=== PATIENT | female | born 1960 | race Caucasian/White ===

== ENCOUNTER → 2017-10-10 17:54 | Outpatient (CLI) | payer OTHER, SELFPAY | PROVIDERS: PCP Family Medicine | DX: R30.0 Dysuria (principal) | CPT/HCPCS: 87077; 87086; 87186 ==

== ENCOUNTER → 2017-12-28 08:57 | Outpatient (CLI) | payer OTHER, SELFPAY ==
--- NOTE | 2017-12-28 | DI.MG.S_ITS ---
BILATERAL DIGITAL SCREENING MAMMOGRAM 3D/2D WITH CAD: 12/28/2017 CLINICAL: Routine screening. Comparison is made to exam dated: 12/16/2015 mammogram - [facility]. There are scattered fibroglandular elements in both breasts. Current study was also evaluated with a Computer Aided Detection (CAD) system. There is a focal asymmetry in the left breast central to the nipple in the retroareolar region. No other significant masses, calcifications, or other findings are seen in either breast. IMPRESSION: INCOMPLETE: NEEDS ADDITIONAL IMAGING EVALUATION The focal asymmetry in the left breast is indeterminate. Additional views with possible ultrasound are recommended. This exam was interpreted at Station ID: [id number]. NOTE: For mammograms, a report in lay terms will be sent to the patient. Approximately 15% of breast malignancies will not be visualized mammographically. In the management of a palpable breast mass, a negative mammogram must not discourage biopsy of a clinically suspicious lesion. Electronically Signed By: Larry Mcgraw M.D. ecl/:01/01/2018 00:17:16 letter sent: Additional Imaging Needed ACR BI-RADS Category 0: Incomplete 3340F
== END ==
PROVIDERS: PCP Family Medicine
DX: Z12.31 Encounter for screening mammogram for malignant neoplasm of breast (principal)
CPT/HCPCS: 77063; 77067

== ENCOUNTER → 2018-01-27 09:50 | Outpatient (CLI) | payer OTHER, SELFPAY ==
--- NOTE | 2018-01-27 | DI.MG.S_ITS ---
UNILATERAL LEFT DIGITAL DIAGNOSTIC MAMMOGRAM 3D/2D WITH ADDITIONAL VIEWS: 01/27/2018 CLINICAL: Additional evaluation requested from prior study. Comparison is made to exams dated: 12/28/2017 mammogram and 12/16/2015 mammogram - [facility]. There are scattered fibroglandular elements in left breast. The focal asymmetry in the left breast central to the nipple in the retroareolar region is not seen in additional views. No other significant masses or calcifications are seen in the breast. IMPRESSION: There is no mammographic evidence of malignancy. A 1 year screening mammogram is recommended. This exam was interpreted at Station ID: [id number]. NOTE: For mammograms, a report in lay terms will be sent to the patient. Approximately 15% of breast malignancies will not be visualized mammographically. In the management of a palpable breast mass, a negative mammogram must not discourage biopsy of a clinically suspicious lesion. Electronically Signed By: Janel Mistry M.D. lk/:01/27/2018 10:24:10 letter sent: Normal Exam ACR BI-RADS Category 2: Benign Finding(s) 3342F
== END ==
PROVIDERS: PCP Family Medicine
DX: R92.8 Other abnormal and inconclusive findings on diagnostic imaging of breast (principal)
CPT/HCPCS: 77065; G0279

== ENCOUNTER → 2019-01-02 08:01 | Outpatient (CLI) | payer OTHER, SELFPAY ==
--- NOTE | 2019-01-02 | DI.MG.S_ITS ---
BILATERAL DIGITAL SCREENING MAMMOGRAM 3D/2D WITH CAD: 01/02/2019 CLINICAL: Routine screening. Comparison is made to exams dated: 01/27/2018 mammogram, 12/28/2017 mammogram, and 12/16/2015 mammogram - [facility]. There are scattered fibroglandular elements in both breasts. Current study was also evaluated with a Computer Aided Detection (CAD) system. There is an asymmetry in the right breast anterior depth central to the nipple seen on the craniocaudal view only. No other significant masses, calcifications, or other findings are seen in either breast. IMPRESSION: INCOMPLETE: NEEDS ADDITIONAL IMAGING EVALUATION The asymmetry in the right breast is indeterminate. Additional views with possible ultrasound are recommended. This exam was interpreted at Station ID: [id number]. NOTE: For mammograms, a report in lay terms will be sent to the patient. Approximately 15% of breast malignancies will not be visualized mammographically. In the management of a palpable breast mass, a negative mammogram must not discourage biopsy of a clinically suspicious lesion. Electronically Signed By: Janel hopkins/guevara:01/02/2019 08:29:15 letter sent: Additional Imaging Needed ACR BI-RADS Category 0: Incomplete 3340F
== END ==
PROVIDERS: PCP Family Medicine; Visit Provider Family Medicine
DX: Z12.31 Encounter for screening mammogram for malignant neoplasm of breast (principal)
CPT/HCPCS: 77063; 77067

== ENCOUNTER → 2019-01-22 14:43 | Outpatient (CLI) | payer OTHER, SELFPAY ==
--- NOTE | 2019-01-22 14:44 | DI.US.S_ITS ---
LIMITED ULTRASOUND OF RIGHT BREAST: 01/22/2019 CLINICAL: Additional evaluation requested from prior study. Comparison is made to exams dated: 01/22/2019 mammogram, 01/02/2019 mammogram, 01/27/2018 mammogram, 12/28/2017 mammogram, and 12/16/2015 mammogram - [facility]. Color flow and real-time ultrasound of the right breast lower outer quadrant and retroareolar regions were performed. Chu scale images of the real-time examination were reviewed. There is mild diffuse ductal dilatation in the right rest retroareolar region and right breast lower outer quadrant, best seen near the 8:00 position approximately 2 cm from the nipple where there is echogenic debris within the ducts and mildly increased echogenicity of the adjacent soft tissues. This may correlate with mammography findings. No suspicious vascularity is identified on ultrasound. IMPRESSION: PROBABLY BENIGN Mild right breast retroareolar and lower outer quadrant diffuse ductal ectasia with internal debris, which is probably benign. A followup diagnostic mammogram with possible ultrasound is recommended to demonstrate stability. The patient is advised to monitor her breasts and to return sooner for re-evaluation should she feel anything grow or change. This exam was interpreted at Station ID: [id number]. Electronically Signed By: Larry Mcgraw M.D. ecl/:01/23/2019 12:11:46 letter sent: Followup Recommended Ultrasound BI-RADS: 3 Probably benign
--- NOTE | 2019-01-22 14:44 | DI.MG.S_ITS ---
UNILATERAL RIGHT DIGITAL DIAGNOSTIC MAMMOGRAM 3D/2D WITH ADDITIONAL VIEWS: 01/22/2019 CLINICAL: Additional evaluation requested from prior study. Comparison is made to exams dated: 01/02/2019 mammogram, 12/28/2017 mammogram, and 12/16/2015 mammogram - [facility]. There are scattered fibroglandular elements in right breast. Previously identified asymmetry in the right breast anterior depth central to the nipple seen on the craniocaudal view only on comparison screening mammograms of 01/02/19 persists with additional views. This measures approximately 0.5 cm in greatest diameter, and is less prominent on spot compression views. IMPRESSION: INCOMPLETE: NEEDS ADDITIONAL IMAGING EVALUATION Previously identified asymmetry in the right breast anterior depth central to the nipple seen on the craniocaudal view only on comparison screening mammograms of 01/02/19 persists with additional views. A targeted ultrasound is recommended for further evaluation, and will be performed immediately following this exam. This exam was interpreted at Station ID: [id number]. NOTE: For mammograms, a report in lay terms will be sent to the patient. Approximately 15% of breast malignancies will not be visualized mammographically. In the management of a palpable breast mass, a negative mammogram must not discourage biopsy of a clinically suspicious lesion. Electronically Signed By: Larry Mcgraw M.D. ecl/:01/22/2019 15:40:12 ACR BI-RADS Category 0: Incomplete 3340F
== END ==
PROVIDERS: PCP Family Medicine; Visit Provider Family Medicine
DX: R92.8 Other abnormal and inconclusive findings on diagnostic imaging of breast (principal); N60.41 Mammary duct ectasia of right breast
CPT/HCPCS: 76642; 77065; G0279

== ENCOUNTER → 2019-02-05 06:53 | Outpatient (CLI) | payer OTHER, SELFPAY ==
[2019-02-05 08:01] LABS: Add Manual Diff / Slide Review NO; Basophils Absolute Auto 100 /uL (0-100); Basophils Percent Auto 1.3 % (0-2); Eosinophils Absolute Auto 100 /uL (0-450); Eosinophils Percent Auto 2.4 % (2-4); Hematocrit 38.9 % (36-46); Hemoglobin 13.5 g/dL (12.0-16.0); Lymphocytes Absolute Auto 2200 /uL (1100-4500); Lymphocytes Percent Auto 36.7 % (25-40); Mean Corpuscular HGB Conc 34.7 % (30-36); Mean Corpuscular Hemoglobin 32.2 PG (26-34); Mean Corpuscular Volume 92.7 fL (80-100); Monocytes Absolute Auto 500 /uL (0-900); Monocytes Percent Auto 7.7 % (3-14); Neutrophils Absolute Auto 3100 /uL (1500-7000); Neutrophils Percent Auto 51.9 % (50-75); Platelet Count 226 X10^3/uL (150-400); Red Cell Distribution Width 13.3 % (11.6-14.8); White Blood Cell Count 5.9 X10^3/uL (4.5-11.0)
[2019-02-05 08:14] LABS: Alanine Aminotransferase 22 IU/L (9-52); Albumin 4.7 g/dL (3.5-5.0); Albumin Globulin Ratio 1.7 (1.0-2.8); Alkaline Phosphatase 72 U/L (38-126); Aspartate Aminotransferase 31 IU/L (14-36); BUN Creatinine Ratio 17.1 (6-22); Bilirubin Total 0.7 mg/dL (0.2-1.3); Blood Urea Nitrogen 12 mg/dL (7-17); Calcium 10.1 mg/dL (8.4-10.2); Carbon Dioxide 25 mmol/L (22-32); Chloride 105 mmol/L (98-107); Cholesterol 213 mg/dL (140-199); Estimated Glomerular Filt Rate > 60.0 mL/min (>60); Globulin 2.7 g/dL (1.7-4.1); Glucose 123 mg/dL (70-100); HDL Cholesterol 51 mg/dL (40-60); HEMOLYSIS < 15 (0-50); LDL Cholesterol Calculated 85 mg/dL (<100); Potassium 3.9 mmol/L (3.4-5.1); Sodium 140 mmol/L (137-145); Total Protein 7.4 g/dL (6.3-8.2); Triglycerides 387 mg/dL (35-150)
[2019-02-05 08:50] LABS: Free T3, Triiodothyronine Free 3.34 pg/mL (2.77-5.27); Free T4, Direct Thyroxine 0.83 ng/dL (0.78-2.19)
[2019-02-05 09:03] LABS: Thyroid Stimulating Hormone 5.31 uIU/mL (0.47-4.68)
== END ==
PROVIDERS: PCP Family Medicine; Visit Provider Family Medicine
DX: Z13.220 Encounter for screening for lipoid disorders (principal); E03.9 Hypothyroidism, unspecified; Z79.899 Other long term (current) drug therapy
CPT/HCPCS: 36415; 80053; 80061; 84439; 84443; 84481; 85025

== ENCOUNTER → 2019-03-25 15:54 | Outpatient (CLI) | payer OTHER, SELFPAY ==
--- NOTE | 2019-03-25 | DI.MRI.S_ITS ---
PROCEDURE: MR BRAIN (IAC) WWO CON INDICATIONS: Other abnormal auditory perceptions, left ear TECHNIQUE: Noncontrast sagittal T1 spin echo, axial FLAIR, axial gradient echo, axial diffusion and ADC through the brain. Axial thin-slice 3D CISS, coronal TruFISP, axial T1 spin echo with fat saturation through the internal auditory canals. After the administration of contrast, thin slice axial and coronal T1 spin echo with fat saturation through the internal auditory canals, and axial T1 spin echo with fat saturation through the brain. COMPARISON: None. FINDINGS: Image quality: Excellent. Cranial nerves: No cerebellopontine angle masses. Visualized cranial nerves demonstrate no areas of abnormal signal, enhancement or mass lesion. CSF spaces: Ventricles are normal in size and shape. No extra-axial fluid collections. Basal cisterns are patent. Brain: No intracranial bleeds or mass effects. Chu-white matter interface is intact. No abnormal intracranial enhancement. Diffusion weighted images demonstrate no acute ischemic insults. Brainstem appears normal. Normal intravascular flow voids are present. Skull and face: Calvarial marrow signal is normal. Orbits appear normal. Sinuses: Sinuses and mastoids are clear. IMPRESSION: 1. No acute intracranial process. 2. No visualized cause of auditory symptoms. Dictated by: Honey Renee M.D. on 03/26/2019 at 13:44 Approved by: Honey Renee M.D. on 03/26/2019 at 13:47
== END ==
PROVIDERS: PCP Family Medicine; Visit Provider Otolaryngology Facial Plastic Surgery
DX: H93.292 Other abnormal auditory perceptions, left ear (principal)
CPT/HCPCS: 70553; A9579

== ENCOUNTER 2019-06-14 13:45 | Emergency (ER) | payer OTHER, SELFPAY ==
[2019-06-14 14:03] VITALS: BP 142/72; PULSE 74; RESP 18; TEMP 36.8; O2SAT 100
--- NOTE | 2019-06-14 14:10 | DI.RAD.S_ITS ---
PROCEDURE: XR ANKLE RT MIN 3V INDICATIONS: fall w/ ankle pain. TECHNIQUE: 3 views of the ankle were acquired. COMPARISON: None. FINDINGS: Bones: No displaced fractures or dislocations. Ankle mortise is normally aligned. No suspicious bony lesions. Soft tissues: There is a suspected tibiotalar joint effusion. Achilles tendon appears intact. IMPRESSION: 1. No displaced fracture or dislocation. 2. Suspected tibiotalar joint effusion. Dictated by: Jeff Boyd M.D. on 06/14/2019 at 13:48 Approved by: Jeff Boyd M.D. on 06/14/2019 at 13:49
[2019-06-14 15:30] VITALS: PULSE 78
[2019-06-14 15:31] VITALS: BP 139/67; PULSE 64; RESP 16; O2SAT 100
--- NOTE | 2019-06-14 15:39 | ED.LOWEXIN ---
HPI - Extremity Injury (Lower) <EPIFANIO Leyva - Last Filed: 06/14/19 21:16> General Chief Complaint: Extremity Injury, Lower Stated Complaint: fell down stairs, twisted right ankle Time Seen by Provider: 06/14/19 15:21 Source: patient Mode of arrival: Wheelchair Limitations: no limitations History of Present Illness HPI Narrative: This is a 59-year-old female, nonsmoker, who presents to ED with significant other with chief complain of left lateral ankle pain. Patient reports she was walking down carrying bed sheet and mattress cover on stairs and she accidentally inverted right ankle 2nd to the last steps and hit her right anterior quintana to the wall. Patient reports continuous throbbing discomfort in lateral malleolar region and reports bruise on right lateral anterior leg from this injury. Patient denies previous injury to same ankle. Patient denies injuring her head, losing consciousness or pain to her right hip, knee, foot. Patient reports intact sensation and mobility to right toes. Patient's spouse applied Ariel bandage on affected ankle prior coming into ED and she reports this has been helping with discomfort. Related Data Previous Rx's Medication Instructions Recorded diclofenac sodium 1 % topical gel 2 gram TOPICAL QIDP PRN #100 gram 11/11/17 lorazepam 1 mg tablet 1 mg PO TIDP PRN #90 tab 01/14/18 naltrexone 50 mg tablet 50 mg PO Q DAY #30 tab 03/12/18 thyroid (pork) 81.25 mg tablet 81.25 mg PO QDAY #30 tab 03/13/18 Testosterone VBase 1% Cream 2 mg TOPICAL .QD #42.5 gram 07/24/18 Progesterone 100mg/mL cream 100 mg TOPICAL .QHS #30 gram 03/05/19 Allergies Allergy/AdvReac Type Severity Reaction Status Date / Time No Known Drug Allergies Allergy Verified 06/14/19 14:09 Review of Systems <EPIFANIO Leyva - Last Filed: 06/14/19 21:16> Review of Systems Narrative: General: Denies fever, chills, fatigue, malaise, sweats. HEENT: Denies sinus pain, ear pain, sore throat, difficulty swallowing, dizziness. Respiratory: Denies dyspnea, cough, wheezing, hemoptysis, sputum. Cardiovascular: Denies chest pain, palpitations, orthopnea, edema. Gastrointestinal: Denies nausea, vomiting, abdominal pain, diarrhea, constipation, melena. : Denies dysuria, frequency, incontinence, hematuria, urinary retention. Musculoskeletal: See HPI Skin: Denies rash, skin lesions, or other. Neurologic: Denies weakness, headache, numbness, change in speech, confusion, seizures, incoordination. Psychiatric: No concerning psychosocial issues. 12-point review of systems is negative except for those stated above. Patient History <EPIFANIO Leyva - Last Filed: 06/14/19 21:16> Medical History Ovarian cyst (Chronic) Surgical History Anesthesia (Resolved) History of hysterosalpingogram (Resolved ~1982) History of knee surgery (Resolved ~1994) History of tonsillectomy (~1967) Status post exploratory laparotomy (12/11/13) Social History Smoking Status: Never smoker Smoking Status: Never smoker alcohol intake frequency: 0-2 drinks per day Substance Use Type: does not use Exam <EPIFANIO Leyva - Last Filed: 06/14/19 21:16> Narrative Exam Narrative: General appearance: well developed, well nourished, in no acute distress. Head: normocephalic, atraumatic, no scalp lesions, non-tender. ENT: Hearing grossly intact. Nose without bleeding, purulent discharge or deviation. Mucous membrane moist, no mucosal lesion. Throat without erythema, tonsillar hypertrophy or exudate. Uvula in midline, airway patent. Neck/Thyroid: neck supple, full range of motion, no visible masses or meningeal signs. No JVD, non-tender without lymphadenopathy. Skin: no suspicious rashes, lesions over visible areas. Warm and dry and appropriate color for ethnicity. Heart: no clubbing, no cyanosis, no edema. Lungs: Breathing even and unlabored. No stridor. No accessory muscles used. Able to speak in full sentences. Chest: normal shape and expansion. Abdomen: non-obese, non-distended. Neurologic: alert and oriented. Cognitive exam, YOUTH DIRECTOR and PNS grossly intact on informal exam. Psych: good eye contact, normal affect. Initial Vital Signs Initial Vital Signs: Vital Signs Temperature 98.2 F 06/14/19 14:03 Pulse Rate 74 06/14/19 14:03 Respiratory Rate 18 06/14/19 14:03 Blood Pressure 142/72 H 06/14/19 14:03 Pulse Oximetry 100 06/14/19 14:03 Extrem Right lower extremity: hip/thigh Details: normal to inspection and normal ROM; no tenderness, knee Details: normal to inspection and normal ROM; no tenderness, lower leg Details: no edema and ecchymosis (anterior lateral leg); no tenderness, no crepitus, no deformity and no unusual warmth, ankle Details: abnormal to inspection, tenderness Location: of the lateral malleolus, swelling Details: laterally, abnormal ROM Details: pain with active ROM (rotating r ankle) and pain with passive ROM and ecchymosis (lateral right malleolar); no unusual warmth, no abrasions, no lacerations and no crepitus and foot Details: normal to inspection, toes with normal ROM, no edema, vascular exam Details: dorsalis pedis pulse present and normal capillary refill, tendon exam Details: active flexion normal Location: of all toes and active extension normal Location: of all toes and motor-sensory exam Details: light-touch normal; no tenderness, no unusual warmth, no abrasion, no laceration, no ecchymosis and no crepitus <Toribio Gao DO - Last Filed: 06/15/19 06:59> Initial Vital Signs Initial Vital Signs: Vital Signs Temperature 98.2 F 06/14/19 14:03 Pulse Rate 74 06/14/19 14:03 Respiratory Rate 18 06/14/19 14:03 Blood Pressure 142/72 H 06/14/19 14:03 Pulse Oximetry 100 06/14/19 14:03 Scores <EPIFANIO Leyva - Last Filed: 06/14/19 21:16> GCS Cj coma scale eye opening: Spontaneous [place] coma scale verbal response: Orientated Cj coma scale motor response: Obey commands Cj coma scale total score: 15 Course <EPIFANIO Leyva Last Filed: 06/14/19 21:16> Orders Ordered: ED Orders 06/14/19 14:10 XR ankle RT min 3V Stat Vital Signs Vital signs: Vital Signs - 8 hr 06/14/19 14:03 06/14/19 15:30 06/14/19 15:31 Temperature 98.2 F Pulse Rate 74 64 Pulse Rate [Right Dorsalis Pedis] 78 Respiratory Rate 18 16 Blood Pressure 142/72 H Blood Pressure [Left Arm] 139/67 Pulse Oximetry 100 100 <Toribio Gao DO - Last Filed: 06/15/19 06:59> Orders Ordered: ED Orders 06/14/19 14:10 XR ankle RT min 3V Stat Vital Signs Vital signs: Vital Signs - 8 hr 06/14/19 14:03 06/14/19 15:30 06/14/19 15:31 Temperature 98.2 F Pulse Rate 74 64 Pulse Rate [Right Dorsalis Pedis] 78 Respiratory Rate 18 16 Blood Pressure 142/72 H Blood Pressure [Left Arm] 139/67 Pulse Oximetry 100 100 MDM - Extremity Injury (Lower) <EPIFANIO Leyva - Last Filed: 06/14/19 21:16> Differential Diagnosis Differential diagnosis: Likely ankle sprain and strain and ankle fracture Medical Records Attestation: I reviewed the patient's medical records. Imaging Data XR-Ankle RT: Radiologist's Impression: [place] [address] XRay Report Signed Patient: Yuki Rodrigez [facility]#: [id number] : 1960Acct:[id number] Age/Sex: 59 / FDate of Service: 06/14/19 Loc: ED Accession Number: [id number] Procedure: XR ankle RT min 3V Ordering Provider: Toribio Gao D.O. PROCEDURE: XR ANKLE RT MIN 3V INDICATIONS: fall w/ ankle pain. TECHNIQUE: 3 views of the ankle were acquired. COMPARISON: None. FINDINGS: Bones: No displaced fractures or dislocations. Ankle mortise is normally aligned. No suspicious bony lesions. Soft tissues: There is a suspected tibiotalar joint effusion. Achilles tendon appears intact. IMPRESSION: 1. No displaced fracture or dislocation. 2. Suspected tibiotalar joint effusion. Dictated by: Jeff Boyd M.D. on 06/14/2019 at 13:48 Approved by: Jeff Boyd M.D. on 06/14/2019 at 13:49 MDM Narrative Medical decision making narrative: This is 59-year-old female who presents to ED with right lateral ankle discomfort with right anterior lateral quintana ecchymosis after she accidentally inverted coming down on stairs. X-ray test on right ankle does not show acute findings such as fractures or dislocations. Patient is able to move her toes and with intact sensation and intact distal pulse. Patient denies discomfort in right lateral quintana but with some ecchymosis. Patient declines Ariel wrap but states will use her hand and patient declined medications while in ED for pain management stating she will take these Tylenol and or Motrin at home. When patient offered crutches, patient declined this and states will borrow her friends scooter for few days. Patient advised to use RICE therapy and to do stretching exercises on affected ankle when acute pain subsides. Patient verbalized understanding and in agreement the plan. Discharge Plan Departure Patient Disposition: Home Clinical Impression: Ankle sprain Qualifiers: Encounter type: initial encounter Involved ligament of ankle: unspecified ligament Laterality: right Qualified Code(s): S93.401A - Sprain of unspecified ligament of right ankle, initial encounter Discharge Date/Time: 06/14/19 16:10 Instructions: DI for Ankle Sprain Activity Restrictions/Additional Instructions: You have been diagnosed with [right lateral ankle sprain. X-ray test does not show acute findings such as fracture or dislocation but indicates tibiotarsal joint effusion]. What to do: *Take your medications as directed. Please take [id number] ibuprofen and Tylenol as needed for discomfort. Ibuprofen 400 mg to 600 mg 3 to 4 times a day as needed for discomfort with food. Tylenol 650-1000 mg up to 4 times a day as needed. Use RICE therapy. Rest, Ice pack for 24-48 hrs, use ariel wrap on affected foot and ankle and elevation to prevent swellings. When acute pain decreases, please start exercising her ankle. Please use a scooter as you planned. *Follow up with your primary care provider in 2-3 days, call for an appointment. If pain persists greater than 7-10 days, Please have repeated xray test on affected ankle done. Let them know you were seen in the ED and that we asked you to be seen in follow up. *Return to ED if you have any new, worsening, or concerning symptoms, such as [chest pain, breathing difficulty, unable to tolerate fluids, tingling/weakness/numbness to affected foot and ankle, fever or any acute concerns]. Prescriptions: No Action diclofenac sodium [Voltaren] 1 % gel 2 gram Topical QIDP PRN (Reason: pain) Qty: 100 RF: 5 lorazepam 1 mg tablet 1 mg PO TIDP PRN (Reason: anxiety) Qty: 90 RF: 2 naltrexone 50 mg tablet 50 mg PO Q DAY Qty: 30 RF: 2 thyroid (pork) [Nature-Throid] 81.25 mg tablet 81.25 mg PO QDAY Qty: 30 RF: 6 Testosterone VBase 1% Cream 2 mg topical .QD Qty: 42.5 RF: 2 Progesterone 100mg/mL cream 100 mg Topical .QHS Qty: 30 RF: 3 Referrals: Yash Yeboah MD [Primary Care Provider] - <Toribio Gao DO - Last Filed: 06/15/19 06:59> Sign Out Provider Sign Out Attestation: Dr Gao Co-Sign Statement: I was available for consultation during this patient's emergency department visit. This chart is signed by myself for administrative purposes only. I did not have direct contact with this patient during this visit. They were seen independently by the APC.
--- NOTE | 2019-06-14 15:59 | PC.NURSE ---
CSM fully intact.
== END 2019-06-14 16:10 | disposition home or self-care (01) ==
PROVIDERS: Emergency Provider Nurse Practitioner Family; PCP Family Medicine
DX: S93.401A Sprain of unspecified ligament of right ankle, initial encounter (principal)
CPT/HCPCS: 73610; 99283

== ENCOUNTER → 2020-01-04 08:53 | Outpatient (CLI) | payer OTHER, SELFPAY | PROVIDERS: PCP Nurse Practitioner Family; Referring Provider Student in an Organized Health Care Education/Training Program; Visit Provider Student in an Organized Health Care Education/Training Program | DX: Z53.9 Procedure and treatment not carried out, unspecified reason (principal) ==

== ENCOUNTER 2020-05-02 16:21 | Emergency (ER) | payer OTHER, SELFPAY ==
[2020-05-02 16:25] VITALS: BP 127/85; PULSE 81; RESP 17; TEMP 36.5; O2SAT 96
--- NOTE | 2020-05-02 16:42 | DI.RAD.S_ITS ---
PROCEDURE: XR SHOULDER LT MIN 2V INDICATIONS: pain TECHNIQUE: 3 views of the shoulder were acquired. COMPARISON: None. FINDINGS: Bones: No fractures or dislocations. No suspicious bony lesions. Visualized ribs appear intact. Soft tissues: No suspicious soft tissue calcifications. IMPRESSION: No shoulder fracture or dislocation. Mild acromioclavicular joint and glenohumeral joint osteoarthritis. Dictated by: Sascha Boateng M.D. on 05/02/2020 at 17:00 Approved by: Sascha Boateng M.D. on 05/02/2020 at 17:00
[2020-05-02 17:34] VITALS: PULSE 75; O2SAT 96
[2020-05-02] MEDS: KETOROLAC 60 MG/2 ML VIAL 30 MG IM (17:52)
[2020-05-02 18:00] VITALS: PULSE 77; O2SAT 97
[2020-05-02 18:01] VITALS: BP 135/69; PULSE 76; O2SAT 97
--- NOTE | 2020-05-02 18:20 | ED.UPPEXIN ---
HPI - Extremity Injury (Upper) General Chief Complaint: Extremity Injury, Upper Stated Complaint: Pain Through Back, Low Stat, Sent from [facility] Time Seen by Provider: 05/02/20 18:06 Source: patient Mode of arrival: Ambulatory Limitations: no limitations History of Present Illness HPI narrative: The patient complains of left neck and upper back pain, onset today. 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 She is aware that she also has osteoarthritis of the thoracic spine. She awoke with the discomfort. There was no associated injury. She has not been ill, there is no cough. She has increased discomfort with motion of the left shoulder. She has no numbness or weakness in left arm, she is right arm dominant. She was seen by her chiropractor earlier today, her current discomfort was present prior to the chiropractor evaluation. She takes Valium as needed, her usual dose is 10 mg, she took 5 mg this morning. He has no incontinence, she has no other symptoms. Related Data Home Medications Medication Instructions Recorded Confirmed LEVOTHYROXINE/LIOTHYRONINE IR 1 cap PO DAILY 04/07/20 Naltrexone 4.2 mg PO BEDTIME 04/07/20 Progesterone 200mg 200 mg PO BEDTIME gram 04/07/20 04/07/20 Testosterone Pellets See Rx Instructions PO [id number] 04/07/20 04/07/20 gram diazepam 05/02/20 Previous Rx's Medication Instructions Recorded ibuprofen 600 mg PO Q6H PRN #40 tab 05/02/20 methocarbamol [Robaxin-750] 750 mg PO Q6H PRN #40 tab 05/02/20 tramadol 50 mg PO Q6H PRN #10 tab 05/02/20 Allergies Allergy/AdvReac Type Severity Reaction Status Date / Time eszopiclone [From Lunesta] AdvReac Severe hallucinati Verified 04/07/20 11:27 ons trazodone AdvReac Intermediate daytime Verified 04/07/20 11:27 sleepiness/foggy Review of Systems Review of Systems ROS Unobtainable: All systems reviewed & are unremarkable except as noted in HPI and below Constitutional Constitutional: Denies fever(s) Comments: No recent illness ENT Comments: No complaints of headache Cardiovascular Cardiovascular: Denies chest pain, Denies rapid heart rate and Denies dyspnea Respiratory Respiratory: Denies dyspnea Musculoskeletal Comments: Left neck and left upper back pain, see HPI. Patient History Medical History Acquired hypothyroidism (08/08/15) Anxiety (01/07/15) Mixed hyperlipidemia On postmenopausal hormone replacement therapy (08/20/16) Ovarian cyst Primary insomnia (08/08/15) Surgical History Anesthesia History of hysterosalpingogram (~1982) History of knee surgery (~1994) History of tonsillectomy (~1967) Status post exploratory laparotomy (12/11/13) Social History Smoking Status: Never smoker additional social history: Cheondoism Smoking Status: Never smoker alcohol intake frequency: 0-2 drinks per day Alcohol type: hard liquor Substance Use Type: does not use Exam Initial Vital Signs Initial Vital Signs: Vital Signs Temperature 97.7 F 05/02/20 16:25 Pulse Rate 81 05/02/20 16:25 Respiratory Rate 17 05/02/20 16:25 Blood Pressure 127/85 05/02/20 16:25 Pulse Oximetry 96 05/02/20 16:25 Const General: cooperative, well developed and anxious [facility] Head: normocephalic and atraumatic Eyes General: appearance normal, both eyes and all related structures Neck Other: No tenderness to the cervical spine. The paraspinal tenderness with spasm. Spasm extends to the left supraspinatus muscle distribution. Resp Auscultation: clear to auscultation bilaterally Cardio Rate: regular rate Rhythm: regular rhythm Heart Sounds: S1 normal and S2 normal Skin General: no rashes or lesions noted Neuro Other: Motrin and sensory exam to the left arm is intact. Extrem Other: Normal range of motion the left shoulder, rib aspiration of neck and back pain with motion. The left radial pulse is intact. Course Orders Ordered: ED Orders 05/02/20 16:42 XR shoulder LT min 2V Stat Discontinued Medications Diazepam (Diazepam 5 Mg Tablet) 10 mg PO NOW ONE Stop: 05/02/20 18:29 Last Admin: 05/02/20 18:33 Dose: 10 mg Documented by: Ketorolac Tromethamine (Ketorolac 60 Mg/2 Ml Vial) 30 mg IM NOW ONE Stop: 05/02/20 17:45 Last Admin: 05/02/20 17:52 Dose: 30 mg Documented by: HORTENSIA Vital Signs Vital signs: Vital Signs - 8 hr 05/02/20 16:25 05/02/20 17:34 05/02/20 18:00 Temperature 97.7 F Pulse Rate 81 75 77 Respiratory Rate 17 Blood Pressure 127/85 Pulse Oximetry 96 96 97 05/02/20 18:01 05/02/20 18:30 Temperature Pulse Rate 76 78 Respiratory Rate Blood Pressure 135/69 132/67 Pulse Oximetry 97 97 MDM - Extremity Injury (Upper) Imaging Data Left shoulder x-ray:: Radiologist's Impression: No acute bony changes. [facility] Narrative Medical decision making narrative: The patient was managed with Toradol and Valium in the ER. She is discharged with a combination of ibuprofen and Robaxin pain spasm. She is encouraged to apply ice packs frequently for the 1st couple days do frequent stretches. Tramadol was also prescribed for added pain control. Given her history of osteoarthritis in the neck and thoracic spine I recommend she talk to her PCM about the osteoarthritis. She apparently underwent bone density studies 2 years ago. This should be reviewed. Discharge Plan Departure Patient Disposition: Home Clinical Impression: Thoracic myofascial strain Qualifiers: Encounter type: initial encounter Qualified Code(s): S29.019A - Strain of muscle and tendon of unspecified wall of thorax, initial encounter Instructions: DI for Back Strain or Sprain Activity Restrictions/Additional Instructions: Apply ice packs to the affected have your back frequently for the next 2 days. Move about and stretch frequently. Ibuprofen every 6 hours as needed for pain. Robaxin every 6 hours as needed for spasm. I will give you a limited prescription of Tramadol for added pain control for the 1st couple days. Follow-up with your doctor if not improved within the next week. Return to the ER as necessary. Additionally, consider follow-up with her PCM regarding your osteoarthritis and concerns for bone density. Prescriptions: New ibuprofen 600 mg tablet 600 mg PO Q6H PRN (Reason: pain) Qty: 40 RF: 0 methocarbamol [Robaxin-750] 750 mg tablet 750 mg PO Q6H PRN (Reason: spasm) Qty: 40 RF: 0 tramadol 50 mg tablet 50 mg PO Q6H PRN (Reason: pain) Qty: 10 RF: 0 No Action Naltrexone 4.2 mg PO BEDTIME RF: 0 Progesterone 200mg 200 mg PO BEDTIME RF: 0 Testosterone Pellets See Rx Instructions PO [id number] RF: 0 LEVOTHYROXINE/LIOTHYRONINE IR 1 cap PO DAILY RF: 0 diazepam 10 mg tablet RF: 0 Referrals: Bruce Fleming MD [Primary Care Provider] -
[2020-05-02 18:30] VITALS: BP 132/67; PULSE 78; O2SAT 97
[2020-05-02] MEDS: diazePAM 5 MG TABLET 10 MG PO (18:33)
--- NOTE | 2020-05-02 18:39 | PC.NURSE ---
Patient stated that the toridol shot did not work. She was given an ice pack and that did not help either.
[2020-05-02 19:07] VITALS: BP 125/66; PULSE 81; RESP 14; O2SAT 98
== END 2020-05-02 19:16 | disposition home or self-care (01) ==
PROVIDERS: Emergency Provider Emergency Medicine; PCP Internal Medicine
DX: S29.019A Strain of muscle and tendon of unspecified wall of thorax, initial encounter (principal); M47.812 Spondylosis without myelopathy or radiculopathy, cervical region; M47.814 Spondylosis without myelopathy or radiculopathy, thoracic region; E78.5 Hyperlipidemia, unspecified
CPT/HCPCS: 73030; 96372; 99281; 99283; J1885

== ENCOUNTER → 2020-05-27 07:39 | Outpatient (CLI) | payer OTHER, SELFPAY ==
[2020-05-27 08:48] LABS: Alanine Aminotransferase 23 IU/L (<35); Albumin 4.3 g/dL (3.5-5.0); Albumin Globulin Ratio 1.4 (1.0-2.8); Alkaline Phosphatase 94 U/L (38-126); Aspartate Aminotransferase 32 IU/L (14-36); BUN Creatinine Ratio 17.1 (6-22); Bilirubin Total 0.3 mg/dL (0.2-1.3); Blood Urea Nitrogen 19 mg/dL (7-17); Calcium 9.9 mg/dL (8.4-10.2); Carbon Dioxide 27 mmol/L (22-32); Chloride 105 mmol/L (98-107); Cholesterol 278 mg/dL (140-199); Estimated Glomerular Filt Rate 50.5 mL/min (>60); Globulin 3.1 g/dL (1.7-4.1); Glucose 108 mg/dL (70-100); HDL Cholesterol 50 mg/dL (40-60); HEMOLYSIS < 15 (0-50); Potassium 4.5 mmol/L (3.4-5.1); Sodium 137 mmol/L (137-145); Total Protein 7.4 g/dL (6.3-8.2)
[2020-05-27 08:57] LABS: Triglycerides 976 mg/dL (35-150)
[2020-05-27 09:06] LABS: Free T3, Triiodothyronine Free 3.32 pg/mL (2.77-5.27); Free T4, Direct Thyroxine 0.54 ng/dL (0.78-2.19)
[2020-05-27 09:19] LABS: Thyroid Stimulating Hormone 1.18 uIU/mL (0.47-4.68)
== END ==
PROVIDERS: PCP Internal Medicine; Referring Provider Internal Medicine; Visit Provider Internal Medicine
DX: E03.9 Hypothyroidism, unspecified (principal); E78.2 Mixed hyperlipidemia; F41.9 Anxiety disorder, unspecified
CPT/HCPCS: 36415; 80053; 80061; 84439; 84443; 84481

== ENCOUNTER → 2020-05-30 09:54 | Outpatient (CLI) | payer OTHER, SELFPAY ==
[2020-05-30 10:48] LABS: COVID19 -Nasal RAPID Negative (Negative)
== END ==
PROVIDERS: PCP Internal Medicine; Visit Provider Family Medicine Sleep Medicine
DX: Z20.822 Contact with and (suspected) exposure to COVID-19 (principal)
CPT/HCPCS: 87635; C9803

== ENCOUNTER 2022-11-02 12:56 | Emergency (ER) | payer OTHER, SELFPAY ==
[2022-11-02] VITALS (8 sets, daily range): BP systolic 133–164; BP diastolic 65–91; PULSE 90–106; RESP 15–16; TEMP 37.1; O2SAT 95–98; BMI 28.1
--- NOTE | 2022-11-02 12:57 | DI.CT.S_ITS ---
PROCEDURE: CT CERVICAL SPINE WO CON INDICATIONS: trauma TECHNIQUE: Noncontrast 3 mm thick sections acquired from the skull base to the T4 level. Sagittal and coronal reformats were then constructed. For radiation dose reduction, the following was used: automated exposure control, adjustment of mA and/or kV according to patient size. COMPARISON: [facility], CR, XR CERVICAL SPINE 2 OR 3 VIEWS, 09/05/2022, 9:57. FINDINGS: Image quality: Excellent. Bones: No fractures or dislocations. Visualized superior ribs are intact. Stable appearance of anterior discectomy and anterior fusion devices spanning from C5 through C7. No evidence of device disruption or displacement. Soft tissues: Prevertebral soft tissues are normal in thickness. No paravertebral hematomas. No apical pneumothoraces. IMPRESSION: Stable postsurgical changes from C5 through C7, previously documented. No osseous trauma or traumatic subluxation found. Dictated by: Abdoulaye Young M.D. on 11/02/2022 at 13:31 Approved by: Abdoulaye Young M.D. on 11/02/2022 at 13:34
--- NOTE | 2022-11-02 12:57 | DI.CT.S_ITS ---
PROCEDURE: CT HEAD/BRAIN WO CON INDICATIONS: trauma TECHNIQUE: Noncontrast 4.5 mm thick angled axial sections acquired from the foramen magnum to the vertex, with coronal and sagittal reformats. For radiation dose reduction, the following was used: automated exposure control, adjustment of mA and/or kV according to patient size. COMPARISON: None. FINDINGS: Image quality: Excellent. CSF spaces: Basal cisterns are patent. No extra-axial fluid collections. Ventricles are normal in size and shape. Brain: No midline shift. No intracranial masses or hemorrhage. Chu-white matter interface is normal. Skull and face: Calvarium and visualized facial bones are intact, without suspicious lesions. Note is made of right-sided periorbital and forehead region soft tissue edema and contusion, without underlying fracture. Sinuses: Visualized sinuses and mastoids are clear. IMPRESSION: Posttraumatic right periorbital and right forehead region soft tissue edema/contusion but no fracture or brain injury is seen. Dictated by: Abdoulaye Young M.D. on 11/02/2022 at 13:30 Approved by: Abdoulaye Young M.D. on 11/02/2022 at 13:31
--- NOTE | 2022-11-02 12:57 | DI.CT.S_ITS ---
PROCEDURE: CT FACIAL BONES WO CON INDICATIONS: trauma TECHNIQUE: Noncontrast 2.5 mm thick axial images acquired from the mandible through the frontal sinuses, with coronal and sagittal reformatting. For radiation dose reduction, the following was used: automated exposure control, adjustment of mA and/or kV according to patient size. COMPARISON: None. FINDINGS: Image quality: Excellent. Bones and teeth: Orbital allen are intact. Sinus allen show no fracture or deformity. Nasal bones and septum are intact. Visualized portions of the mandible demonstrate no fractures or subluxation. Zygomatic arches are intact. Pterygoid plates are intact. Visualized portions of the skull base and auditory canals are intact. Sinuses: Paranasal sinuses are aerated, without fluid levels, mucosal thickening, or mucoceles. Mastoid air cells are aerated. Soft tissues: No left-sided edema, masses, or fluid collections. There is periorbital edema on the right consistent with blunt trauma in the recent past. No enlarged lymph nodes. No soft tissue lacerations or debris. Vascular: Visualized vascular structures appear normal in the absence of contrast. Bony vascular foramina and canals are intact. IMPRESSION: No acute trauma found other than periorbital edema in the right facial area, without underlying fracture or traumatic subluxation. Dictated by: Abdoulaye Young M.D. on 11/02/2022 at 13:27 Approved by: Abdoulaye Young M.D. on 11/02/2022 at 13:29
--- NOTE | 2022-11-02 12:57 | DI.RAD.S_ITS ---
PROCEDURE: XR CHEST 2V INDICATIONS: trauma TECHNIQUE: 2 views of the chest were acquired. COMPARISON: None. FINDINGS: Surgical changes and devices: None. Lungs and pleura: Lungs are clear. No pleural effusions or pneumothorax. Mediastinum: Mediastinal contours are normal. Heart size is normal. Bones and chest wall: No suspicious bony abnormalities. Soft tissues appear unremarkable. IMPRESSION: No acute cardiopulmonary abnormalities or focal airspace disease. No evidence for acute traumatic injury. Dictated by: Sukhdeep Owusu M.D. on 11/02/2022 at 12:28 Approved by: Sukhdeep Owusu M.D. on 11/02/2022 at 12:28
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
[2022-11-02] MEDS: PROPARACAINE 0.5% OPHTH SOL 1 DROPS EYE-RIGHT (14:45)
[2022-11-02] MEDS: FLUORESCEIN 1 MG STRIP EYE-BOTH (14:46)
== END 2022-11-02 15:15 | disposition home or self-care (01) ==
PROVIDERS: Emergency Provider Emergency Medicine; PCP Family Medicine
DX: S00.11XA Contusion of right eyelid and periocular area, initial encounter (principal); R07.89 Other chest pain; S09.90XA Unspecified injury of head, initial encounter; V89.2XXA Person injured in unspecified motor-vehicle accident, traffic, initial encounter
CPT/HCPCS: 70450; 70486; 71046; 72125; 99284